=== PATIENT | female | born 1980 | race Caucasian/White ===

== ENCOUNTER → 2019-09-05 | Outpatient (CLI) | payer OTHER ==
--- NOTE | 2019-09-06 16:20 | MRI ---
MR BRAIN WITHOUT IV CONTRAST HISTORY: 39 years Female TOURETTES DISORDER COMPARISON: None. TECHNIQUE: Multiplanar multisequence MR imaging of the brain was performed without the use of intravenous contrast. FINDINGS: Extra-axial spaces/ventricular system: Normal for patient age. Basal cisterns: Unremarkable. Herniation: None. Ischemia: None. Intracranial hemorrhage: None detected. Cerebral parenchyma: A few small foci of abnormal T2/FLAIR signal are present within the left frontal supratentorial white matter which are nonspecific. Vasques-white matter differentiation maintained. Brainstem: Unremarkable. Cerebellum: Unremarkable. Vascular structures: Major intracranial arterial flow voids at the central skull base are preserved suggesting patency. Dural venous sinuses: Flow voids preserved suggesting patency. Sella: Unremarkable. Visualized orbits: Unremarkable. Paranasal sinuses/mastoid air cells: Paranasal sinuses demonstrate normal MR signal. Mild fluid present within the left mastoid air cells. Calvarium/skull base: Normal marrow signal. Included cervical spine: No acute abnormality detected. IMPRESSION: Nonspecific T2/FLAIR hyperintense foci within the left frontal supratentorial white matter. These may be seen with numerous etiologies including migraine headaches. Otherwise no evidence of an acute intracranial process. Mild fluid in the left mastoid air cells. Electronically signed by: Reynold Bobby MD 09/06/2019 4:18 PM CDT
== END ==
LOC: MRI 14:00
DX: F95.2 Tourette's disorder (principal); R90.82 White matter disease, unspecified; H74.8X2 Other specified disorders of left middle ear and mastoid